=== PATIENT | male | born 1935 | race Two or more races ===

== ENCOUNTER 2024-08-18 05:15 | Day surgery (SDC) | payer OTHER ==
[2024-08-14 08:26] VITALS: BP 160/70
[2024-08-14 08:59] LABS: PH,URINE 6.5 (5.0-8.0); URINE APPEARANCE Clear; URINE BILIRRUBIN Negative (NEGATIVE); URINE BLOOD Negative; URINE COLOR Yellow; URINE GLUCOSE Negative (NEGATIVE); URINE KETONE Negative (NEGATIVE); URINE LEUKOCYTE Negative; URINE NITRATE Negative; URINE PROTEIN 30 (NEGATIVE); URINE UROBILINOGEN 0.2 E.U./dl
[2024-08-14 09:00] LABS: URINE BACTERIA 128.4 uL (0.0-1933); URINE EPITHELIAL CELLS 16.6 uL (0.0-38.8); URINE RBC 20.3 uL (0.0-20.8); URINE WBC 14.7 uL (0.0-23.2)
[2024-08-14 15:12] LABS: RH POSITIVE
[~2024-08-18] VITALS: Ht 167.6 cm; Wt 70.8 kg
[~2024-08-18 05:15] MED LIST: AMLODIPINE-OLM1 EACH; NASAL MIST126 ML; SIMVASTATIN20 MG; SYNTHROID100 MCG; TEMAZEPAM30 MG; [UNRECOGNIZED DRUG - CODE]
[2024-08-18] MEDS ORDERED: CHLORHEXIDINE GLUCONATE 120 ML BOTTLE TOP ONE ×2 (07:58→09:30)
[2024-08-18] MEDS ORDERED: GENTAMICIN SULFATE 40 MG/ML VIAL IV SCH (09:30)
[2024-08-18] MEDS ORDERED: FUROsemide 10 MG/ML ML PO ONE (10:15)
[2024-08-18] MEDS ORDERED: PHENAZOPYRIDINE HCL 100 MG TABLET PO ONE ×2 (10:15→12:14)
[2024-08-18] MEDS ORDERED: MORPHINE SULFATE 4 MG/ML VIAL IV ONE (11:55)
[2024-08-18] MEDS ORDERED: FUROsemide 20 MG/2 ML VIAL ONE (12:26)
[2024-08-18] MEDS ORDERED: FUROsemide 20 MG/2 ML VIAL IV NR (12:30)
[2024-08-18] MEDS ORDERED: MORPHINE SULFATE 2 MG/ML CARTRIDGE IV ONE (13:50)
== END 2024-08-18 15:30 | disposition home or self-care (01) ==
LOC: CIR.AMB 05:15
PROVIDERS: ATTEND Urology
DX: C67.9 Malignant neoplasm of bladder, unspecified (principal); N39.0 Urinary tract infection, site not specified; I10 Essential (primary) hypertension; E03.8 Other specified hypothyroidism